=== PATIENT | male | born 1970 | race Caucasian/White ===

== ENCOUNTER 2016-05-01 13:14 | Emergency (ER) ==
[2016-05-01 13:20] VITALS: BP 132/83
[2016-05-01] MEDS ORDERED: ASPIRIN PO STA (13:24)
--- NOTE | 2016-05-01 13:30 | PROVIDER DOCUMENTATION ---
HPI-Psychological Disorder - General Chief Complaint: Anxiety Stated Complaint: Domestic Dispute/Chest Pain Allergies/Adverse Reactions: Patient Allergies Allergy/AdvReac Type Severity Reaction Status Date / Time bupropion HCl * Allergy SHORTNESS Verified 05/01/16 13:20 [From Wellbutrin] OF BREATH buspirone HCl * [From BuSpar] Allergy ANAPHYLAXIS Verified 05/01/16 13:20 risperidone [From Risperdal] Allergy ANAPHYLAXIS Verified 05/01/16 13:20 psy med x2 Allergy SHORTNESS Uncoded 05/01/16 13:20 OF BREATH Past History - Adult - PAST MEDICAL HISTORY-ADULT Major Childhood Illnesses: reports: denies history Cardiovascular: reports: denies history Respiratory: reports: denies history Gastrointestinal: reports: denies history Obstetrical/Gynecological: reports: denies history Genitourinary: reports: denies history Musculoskeletal: reports: chronic pain Neurological: reports: denies history Psychiatric: reports: psychiatric problems, schizophrenia Endocrine/Immune: reports: denies history Other Conditions: reports: denies history - PRIOR SURGERIES/PROCEDURES Surgical/Procedure History: reports: none - IMMUNIZATION STATUS Childhood Immunizations: See Nurse Assessment Flu Vaccine: See Nurse Assessment - FAMILY HISTORY Family History: reviewed, not pertinent Progress - EKG 1 Time of EKG reading by physician:: 13:12 EKG Read and Signed by:: Wilber Morelos EKG Interpretation (*Must complete 3 of following elements*): Abnormal Rate: 94 Rhythm: normal sinus rhythm with sinus arrhythmia [place]: normal QRS: normal ND Interval: normal ST Wave: non-specific ST changes Comments: septal infarct, age undetermined Attestation - Scribe Verification/Attestation Scribe:: Yolis Jean Scribe documention review:: This chart was documented by a scribe and accurately reflects the service the provider performed and the decisions made by the provider.
[2016-05-01 13:35] LABS: MANUAL DIFF NEEDED? NO
[2016-05-01 13:37] LABS: BASO% 0.4 % (0.0-0.8); EOS# 0.18 X1000 (0.0-0.7); EOS% 1.8 % (0.0-10.0); HEMATOCRIT 48.9 % (42.0-52.0); HEMOGLOBIN 17.1 g/dL (14.0-18.0); IMM GRAN# 0.02 X1000 (0.0-0.04); IMM GRAN% 0.2 % (0.0-0.5); LYMPH# 3.06 X1000 (1.2-3.4); LYMPH% 30.6 % (20.5-51.1); MCH 31.7 PG (27-31); MCV 90.6 FL (81-99); MONO# 0.66 X1000 (0.11-0.59); MONO% 6.6 % (1.7-9.3); MPV 10.6 FL (7.4-10.4); NEUT% 60.4 % (42.2-75.2); PLT 290 X1000 (130-400)
--- NOTE | 2016-05-01 13:56 | EKG Report ---
Test Performed on : 05/01/2016 1:12:19 PM Test Reason : CP Blood Pressure : / mmHG Vent. Rate : 094 BPM Atrial Rate : 094 BPM P-R Int : 150 ms QRS Dur : 086 ms QT Int : 360 ms P-R-T Axes : 080 084 062 degrees QTc Int : 450 ms Normal sinus rhythm. with sinus arrhythmia. Septal infarct , age undetermined Abnormal ECG No previous ECGs available Unconfirmed Result
[2016-05-01 13:58] LABS: AGAP 17; ALKALINE PHOSPHATASE 63 U/L (32-122); BUN 10 mg/dL (8-22); CALCIUM 9.8 mg/dL (8.8-10.2); CHLORIDE 99 mmol/L (98-107); CK PROFILE 149 U/L (24-204); COSMO 276; GOT 20 U/L (10-34); GPT 14 U/L (10-44); POTASSIUM 3.7 mmol/L (3.5-5.1); SODIUM 138 mmol/L (136-145); TCO2 22 mmol/L (25-35); TOTAL PROTEIN 7.6 g/dL (6.3-8.3)
[2016-05-01 14:01] LABS: INR 0.86 (0.86-1.15)
[2016-05-01 14:02] LABS: PTT PL 26.7 Seconds (22.6-43.9)
--- NOTE | 2016-05-01 14:40 | Diag Imaging Result Document ---
PROCEDURE NAME: CHEST-2 VIEWS - 05/01/2016 PA AND LATERAL RADIOGRAPH OF THE CHEST: COMPARISON: 10/23/2013. FINDINGS: The lungs are grossly clear. There is no discrete pleural fluid collection or evidence of pneumothorax. The cardiomediastinal silhouette and upper airway are grossly unremarkable. IMPRESSION: No evidence of acute chest pathology.
== END 2016-05-01 14:58 | disposition left against medical advice (07) ==
LOC: P.ED 13:14
DX: R07.9 Chest pain, unspecified (principal)
CPT/HCPCS: 71020; 80053; 82550; 83735; 83880; 84484; 85025; 85379; 85610; 85730; 93005